=== PATIENT | female | born 1995 | race Caucasian/White ===

== ENCOUNTER 2023-04-14 14:33 | Outpatient (REF) | payer MEDICAID, SELFPAY ==
[2023-04-15 05:05] LABS: CT PCR NOT DETECTED (Not Detect.); NG PCR NOT DETECTED (Not Detect.)
[2023-04-15 08:18] LABS: Syphilis Screen Nonreactive (Nonreactive)
[2023-04-15 08:38] LABS: HBS Num1 2.52 mIU/mL (0-7.99); HBsAGNum1 0.35 S/CO (0.00-0.99); HIV AB/AG Nonreactive (Nonreactive); HIV Num 1 0.08 S/CO (0.00-0.99); Hepatitis A Antibody IgM 0.21 Index (0-0.79); Hepatitis B Core Antibody Nonreactive (Nonreactive); Hepatitis B Surface Antigen Negative (Negative); ~HepC Num1 0.12 S/CO (0.00-0.79); ~Hepatitis A Antibody IgM Nonreactive (Nonreactive); ~Hepatitis B Surface Antibody NONREACTIVE (Nonreactive); ~Hepatitis C Antibody Nonreactive (Nonreactive)
== END 2023-04-14 14:34 | disposition home or self-care (01) ==
LOC: HO.HHCL 14:33
PROVIDERS: Visit Provider Nurse Practitioner Primary Care
DX: Z00.00 Encounter for general adult medical examination without abnormal findings (principal); Z11.3 Encounter for screening for infections with a predominantly sexual mode of transmission
CPT/HCPCS: 0353U; 36415; 86704; 86706; 86709; 86780; 86803; 87340; 87389